=== PATIENT | female | born 1945 | race American Indian/Alaskan Native ===

== ENCOUNTER 2018-07-07 18:31 | Observation (INO) | payer MEDICARE ==
[2018-07-07 18:57] VITALS: BMI 36.6
[2018-07-07 20:17] LABS: BASO # 0.02 K/mm3 (0.0-2.0); BASO % 0.2 % (0.0-3.0); EOS # 0.1 (0.0-0.7); EOS % 1.2 % (1.5-5.0); HEMOGLOBIN 14.3 g/dL (12.0-16.0); LYMPH # 4.2 (1.2-3.4); LYMPH % 51.3 % (22.0-35.0); MEAN CELL VOLUME 91.9 fl (80.0-105.0); MEAN CORPUSCULAR HEMOGLOBIN 29.8 pg (25.0-35.0); MEAN CORPUSCULAR HGB CONC 32.4 g/dl (31.0-37.0); MEAN PLATELET VOLUME 10.7 fl (7.0-11.0); MONO # 0.5 (0.1-0.6); MONO % 5.7 % (1.0-6.0); RBC 4.8 10^6/uL (3.5-6.1); RED CELL DISTRIBUTION WIDTH 13.5 % (11.5-14.5); WHITE BLOOD COUNT 8.3 10^3/uL (4.5-11.0)
[2018-07-07 20:19] LABS: URINE APPEARANCE CLEAR (CLEAR); URINE BILIRUBIN NEGATIVE (NEGATIVE); URINE BLOOD NEGATIVE (NEGATIVE); URINE COLOR LIGHT YELLOW (YELLOW); URINE GLUCOSE (UA) NEGATIVE (NEGATIVE); URINE LEUKOCYTE ESTERASE NEGATIVE Leu/uL (NEGATIVE); URINE PROTEIN NEGATIVE mg/dL (<30 mg/dL); URINE UROBILINOGEN 0.2 E.U./dL (<1 E.U./dL)
[2018-07-07 20:21] LABS: INR 1.08; PARTIAL THROMBOPLASTIN TIME 23.4 Seconds (26.9-38.3)
[2018-07-07 21:15] LABS: ALB/GLOB RATIO 1.2 (1.1-1.8); ALBUMIN 4.2 g/dL (3.0-4.8); ALT/SGPT 9 U/L (7-56); AST/SGOT 14 U/L (14-36); BLOOD UREA NITROGEN 15 mg/dL (7-21); CALCIUM 9.5 mg/dL (8.4-10.5); GFR NON-AFRICAN AMERICAN > 60; LIPASE 53 U/L (23-300)
[2018-07-07 21:27] LABS: TROPONIN I < 0.01 ng/mL
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
[2018-07-08 03:40] LABS: BASO # 0.02 K/mm3 (0.0-2.0); BASO % 0.3 % (0.0-3.0); EOS # 0.1 (0.0-0.7); EOS % 1.4 % (1.5-5.0); HEMOGLOBIN 12.9 g/dL (12.0-16.0); LYMPH # 3.5 (1.2-3.4); LYMPH % 49.4 % (22.0-35.0); MEAN CELL VOLUME 90.9 fl (80.0-105.0); MEAN CORPUSCULAR HEMOGLOBIN 29.5 pg (25.0-35.0); MEAN CORPUSCULAR HGB CONC 32.4 g/dl (31.0-37.0); MEAN PLATELET VOLUME 10.1 fl (7.0-11.0); MONO # 0.4 (0.1-0.6); MONO % 5.5 % (1.0-6.0); RBC 4.38 10^6/uL (3.5-6.1); RED CELL DISTRIBUTION WIDTH 13.3 % (11.5-14.5); WHITE BLOOD COUNT 7.1 10^3/uL (4.5-11.0)
[2018-07-08 04:58] LABS: LDL CHOLESTEROL 77 mg/dL (0-129); TROPONIN I < 0.01 ng/mL
[2018-07-08 05:07] LABS: ALB/GLOB RATIO 1.1 (1.1-1.8); ALBUMIN 3.9 g/dL (3.0-4.8); ALT/SGPT 11 U/L (7-56); AST/SGOT 17 U/L (14-36); BLOOD UREA NITROGEN 12 mg/dL (7-21); CALCIUM 9.6 mg/dL (8.4-10.5); GFR NON-AFRICAN AMERICAN > 60; HDL CHOLESTEROL 41 mg/dL (29-60)
[2018-07-08 06:18] VITALS: TEMP 98.5; O2SAT 97
[2018-07-08] MEDS: Insulin Regular 1 UNITS/0.01 ML ML SC SCH ×3 (08:08→17:27)
--- NOTE | 2018-07-08 08:13 | RAD ---
Date of service: 07/07/2018 HISTORY: chest pain COMPARISON: No prior. FINDINGS: LUNGS: No active pulmonary disease. PLEURA: No significant pleural effusion identified, no pneumothorax apparent. CARDIOVASCULAR: No aortic atherosclerotic calcification present. Mild cardiomegaly no pulmonary vascular congestion. OSSEOUS STRUCTURES: Sternal wires VISUALIZED UPPER ABDOMEN: Normal. OTHER FINDINGS: None. IMPRESSION: No active disease.
[2018-07-08] MEDS ORDERED: Aminophylline 25 mg/ml Inj ONE (10:44)
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
--- NOTE | 2018-07-08 16:29 | CARD ---
APPROVED REPORT Date of service: 07/08/2018 EXAM: Two-dimensional and M-mode echocardiogram with Doppler and color Doppler. INDICATION Chest Pain 2D DIMENSIONS Left Atrium (2D)3.9 (1.6-4.0cm)IVSd1.2 (0.7-1.1cm) LVDd3.3 (3.9-5.9cm)PWd1.4 (0.7-1.1cm) LVDs2.3 (2.5-4.0cm)FS (%) 30.6 % LVEF (%)59.4 (>50%) M-Mode DIMENSIONS Aortic Root2.60 (2.2-3.7cm)Aortic Cusp Exc.1.70 (1.5-2.0cm) Aortic Valve AoV Peak Hpbrhfnt181.0cm/Flaco Peak GR.8mmHg Mitral Valve MV E Aiufcdka18.8cm/sMV A Egpbgekw614.0cm/sE/A ratio0.5 TDI E/Lateral E'0.0E/Medial E'0.0 Tricuspid Valve TR Peak Qtpkyiqq130vm/sRAP BUSIDUYC46vfKfHU Peak Gr.16mmHg [id number] LEFT VENTRICLE The left ventricle is normal size. There is normal left ventricular wall thickness. The left ventricular function is normal. The left ventricular ejection fraction is within the normal range. There is normal LV segmental wall motion. Transmitral Doppler flow pattern is Grade I-abnormal relaxation pattern. RIGHT VENTRICLE The right ventricle is normal size. There is normal right ventricular wall thickness. The right ventricular systolic function is normal. ATRIA The left atrium size is normal. The right atrium size is normal. AORTIC VALVE The aortic valve is mildly thickened. No aortic regurgitation is present. There is no aortic valvular stenosis. MITRAL VALVE The mitral valve is mildly thickened. There is no mitral valve regurgitation noted. There is no mitral valve stenosis. TRICUSPID VALVE The tricuspid valve is normal in structure. There is trace tricuspid regurgitation. PULMONIC VALVE The pulmonary valve is normal in structure. There is trace pulmonic valvular regurgitation. GREAT VESSELS The aortic root is normal in size. The IVC is normal in size and collapses >50% with inspiration. PERICARDIAL EFFUSION There is no pericardial effusion. <Conclusion> There is normal left ventricular wall thickness. The left ventricular function is normal. The left ventricular ejection fraction is within the normal range. There is normal LV segmental wall motion. Transmitral Doppler flow pattern is Grade I-abnormal relaxation pattern.
--- NOTE | 2018-07-08 17:04 | CP.PCM.DIS ---
<Ricardo Rush - Last Filed: 07/08/18 17:04> Provider - Provider Date of Admission: 07/07/18 22:52 Attending physician: Ethan Hawthorne MD Consults: 07/08/18 00:59 Physician Consult Routine Comment: Consulting Provider: Lakia Holman Consulting Physician: Lakia Holman Reason for Consult: acs r/o 07/08/18 03:14 Social Work Referral Routine Comment: admission assessment protocol Physician Instructions: Reason For Exam: Madhuri score of 8 Time Spent in preparation of Discharge (in minutes): 40 Diagnosis - Discharge Diagnosis (1) Chest pain Status: Resolved (2) CAD (coronary artery disease) Status: Chronic Hospital Course - Lab Results Lab Results: Most Recent Lab Values WBC 7.1 10^3/uL (4.5-11.0) 07/08/18 03:20 RBC 4.38 10^6/uL (3.5-6.1) 07/08/18 03:20 Hgb 12.9 g/dL (12.0-16.0) 07/08/18 03:20 Hct 39.8 % (36.0-48.0) 07/08/18 03:20 MCV 90.9 fl (80.0-105.0) 07/08/18 03:20 MCH 29.5 pg (25.0-35.0) 07/08/18 03:20 MCHC 32.4 g/dl (31.0-37.0) 07/08/18 03:20 RDW 13.3 % (11.5-14.5) 07/08/18 03:20 Plt Count 316 10^3/uL (120.0-450.0) 07/08/18 03:20 MPV 10.1 fl (7.0-11.0) 07/08/18 03:20 Neut % (Auto) 43.4 % (50.0-68.0) L 07/08/18 03:20 Lymph % (Auto) 49.4 % (22.0-35.0) H 07/08/18 03:20 Lee % (Auto) 5.5 % (1.0-6.0) 07/08/18 03:20 Eos % (Auto) 1.4 % (1.5-5.0) L 07/08/18 03:20 Baso % (Auto) 0.3 % (0.0-3.0) 07/08/18 03:20 Lymph # (Auto) 3.5 (1.2-3.4) H 07/08/18 03:20 Lee # (Auto) 0.4 (0.1-0.6) 07/08/18 03:20 Eos # (Auto) 0.1 (0.0-0.7) 07/08/18 03:20 Baso # (Auto) 0.02 K/mm3 (0.0-2.0) 07/08/18 03:20 Absolute Neuts (auto) 3.06 (1.4-6.5) 07/08/18 03:20 PT 12.0 SECONDS (9.4-12.5) 07/07/18 19:30 INR 1.08 07/07/18 19:30 APTT 23.4 Seconds (26.9-38.3) L 07/07/18 19:30 Sodium 140 mmol/L (132-148) 07/08/18 03:20 Potassium 4.2 mmol/L (3.6-5.0) 07/08/18 03:20 Chloride 104 mmol/L (98-107) 07/08/18 03:20 Carbon Dioxide 30 mmol/L (21-33) 07/08/18 03:20 Anion Gap 9 (10-20) L 07/08/18 03:20 BUN 12 mg/dL (7-21) 07/08/18 03:20 Creatinine 0.8 mg/dl (0.7-1.2) 07/08/18 03:20 Est GFR ( Amer) > 60 07/08/18 03:20 Est GFR (Non-Af Amer) > 60 07/08/18 03:20 POC Glucose (mg/dL) 141 mg/dL (65-110) H 07/08/18 16:14 Random Glucose 137 mg/dL (70-110) H 07/08/18 03:20 Hemoglobin A1c 7.7 % (4.2-6.5) H 07/08/18 03:20 Calcium 9.6 mg/dL (8.4-10.5) 07/08/18 03:20 Magnesium 1.9 mg/dL (1.7-2.2) 07/07/18 20:57 Total Bilirubin 0.5 mg/dL (0.2-1.3) 07/08/18 03:20 AST 17 U/L (14-36) 07/08/18 03:20 ALT 11 U/L (7-56) 07/08/18 03:20 Alkaline Phosphatase 63 U/L (38-126) 07/08/18 03:20 Lactate Dehydrogenase 349 U/L (333-699) 07/07/18 20:57 Total Creatine Kinase 56 U/L (35-230) 07/07/18 20:57 Troponin I < 0.01 ng/mL 07/08/18 09:20 Total Protein 7.4 g/dL (5.8-8.3) 07/08/18 03:20 Albumin 3.9 g/dL (3.0-4.8) 07/08/18 03:20 Globulin 3.5 gm/dL 07/08/18 03:20 Albumin/Globulin Ratio 1.1 (1.1-1.8) 07/08/18 03:20 Triglycerides 146 mg/dL (35-160) 07/08/18 03:20 Cholesterol 156 mg/dL (130-200) 07/08/18 03:20 LDL Cholesterol Direct 77 mg/dL (0-129) 07/08/18 03:20 HDL Cholesterol 41 mg/dL (29-60) 07/08/18 03:20 Lipase 53 U/L (23-300) 07/07/18 20:57 TSH 3rd Generation 1.49 mIU/mL (0.46-4.68) 07/08/18 03:20 Urine Color Light yellow (YELLOW) 07/07/18 19:30 Urine Appearance Clear (CLEAR) 07/07/18 19:30 Urine pH 7.0 (4.7-8.0) 07/07/18 19:30 Ur Specific [place] 1.010 (1.005-1.035) 07/07/18 19:30 Urine Protein Negative mg/dL (<30 mg/dL) 07/07/18 19:30 Urine Glucose (UA) Negative mg/dL (NEGATIVE) 07/07/18 19:30 Urine Ketones Negative mg/dL (NEGATIVE) 07/07/18 19:30 Urine Blood Negative (NEGATIVE) 07/07/18 19:30 Urine Nitrate Negative (NEGATIVE) 07/07/18 19:30 Urine Bilirubin Negative (NEGATIVE) 07/07/18 19:30 Urine Urobilinogen 0.2 E.U./dL (<1 E.U./dL) 07/07/18 19:30 Ur Leukocyte Esterase Negative [place]/uL (NEGATIVE) 07/07/18 19:30 - Hospital Course Hospital Course: Ricardo Rush DO, PGY-1 Hospitalist Discharge Summary for Dr. Hawthorne Prior to admission: Patient is a 73 yo F with PMH of HTN, DM2, HLD, and CAD (s/p CABG in 2013) presented to [facility] [place] ED with a complaint of CP x 2 days. Patient also admitted to associated diaphoresis, nausea, vomiting (x1 episode nonbloody), and lightheadedness. She was subsequently admitted for ACS r/o. Hospitalization course: Patient's troponins were trended q6h and were negative x 3. Repeat EKG in AM showed no changes from prior. Dr. Wall saw and evaluated patient and recommended inpatient stress test. Patient was subsequently instructed to f/u with Dr. Wall within 1 week to discuss results. Patient was given additional instructions as below. Discharge plan was discussed in detail with patient. All questions were answered. Patient seen, examined, and discharge plan discussed with my attending Dr. Marine Rush D.O. IM Resident PGY-1 Discharge Exam - Head Exam Head Exam: NORMAL INSPECTION, NORMOCEPHALIC - Eye Exam Eye Exam: EOMI, PERRL - ENT Exam ENT Exam: Mucous Membranes Moist - Neck Exam Neck exam: Full Rom, Normal Inspection - Respiratory Exam Respiratory Exam: Clear to PA & Lateral, NORMAL BREATHING PATTERN, UNREMARKABLE. absent: Accessory Muscle Use, Rales, Rhonchi, Wheezes, Respiratory Distress - Cardiovascular Exam Cardiovascular Exam: REGULAR RHYTHM, RRR, +S1, +S2. absent: Diastolic murmur, Gallop, Rubs, Systolic Murmur - GI/Abdominal Exam GI & Abdominal Exam: Normal Bowel Sounds, Soft, Unremarkable. absent: Tenderness - Extremities Exam Extremities exam: full ROM, normal inspection - Back Exam Back exam: NORMAL INSPECTION - Neurological Exam Neurological exam: Alert, Oriented x3 - Psychiatric Exam Psychiatric exam: Normal Affect, Normal Mood - Skin Skin Exam: Dry, Intact, Warm Discharge Plan - Follow Up Plan Condition: FAIR Disposition: HOME/ ROUTINE Instructions: Cardiac Stress Test, Myocardial Perfusion Imaging, Chemical Stress Test , Chest Pain (ED), Chest Pain (DC), Chest Pain (GEN) Additional Instructions: Please follow up with Dr Wall in 1 week for stress test result. Please follow up with your primary care doctor in 3-5 days. Continue with your home medications. Please return if the symptoms returns. Referrals: Lakia Wall MD [Staff Provider] - Fanta Anderson MD [Staff Provider] - <Ethan Hawthorne - Last Filed: 07/09/18 14:06> Provider - Provider Date of Admission: 07/07/18 22:52 Attending physician: Ethan Hawthorne MD Consults: 07/08/18 00:59 Physician Consult Routine Comment: Consulting Provider: Lakia Holman Consulting Physician: Lakia Holman Reason for Consult: acs r/o 07/08/18 03:14 Social Work Referral Routine Comment: admission assessment protocol Physician Instructions: Reason For Exam: Madhuri score of 8 Hospital Course - Lab Results Lab Results: Most Recent Lab Values WBC 7.1 10^3/uL (4.5-11.0) 07/08/18 03:20 RBC 4.38 10^6/uL (3.5-6.1) 07/08/18 03:20 Hgb 12.9 g/dL (12.0-16.0) 07/08/18 03:20 Hct 39.8 % (36.0-48.0) 07/08/18 03:20 MCV 90.9 fl (80.0-105.0) 07/08/18 03:20 MCH 29.5 pg (25.0-35.0) 07/08/18 03:20 MCHC 32.4 g/dl (31.0-37.0) 07/08/18 03:20 RDW 13.3 % (11.5-14.5) 07/08/18 03:20 Plt Count 316 10^3/uL (120.0-450.0) 07/08/18 03:20 MPV 10.1 fl (7.0-11.0) 07/08/18 03:20 Neut % (Auto) 43.4 % (50.0-68.0) L 07/08/18 03:20 Lymph % (Auto) 49.4 % (22.0-35.0) H 07/08/18 03:20 Lee % (Auto) 5.5 % (1.0-6.0) 07/08/18 03:20 Eos % (Auto) 1.4 % (1.5-5.0) L 07/08/18 03:20 Baso % (Auto) 0.3 % (0.0-3.0) 07/08/18 03:20 Lymph # (Auto) 3.5 (1.2-3.4) H 07/08/18 03:20 Lee # (Auto) 0.4 (0.1-0.6) 07/08/18 03:20 Eos # (Auto) 0.1 (0.0-0.7) 07/08/18 03:20 Baso # (Auto) 0.02 K/mm3 (0.0-2.0) 07/08/18 03:20 Absolute Neuts (auto) 3.06 (1.4-6.5) 07/08/18 03:20 PT 12.0 SECONDS (9.4-12.5) 07/07/18 19:30 INR 1.08 07/07/18 19:30 APTT 23.4 Seconds (26.9-38.3) L 07/07/18 19:30 Sodium 140 mmol/L (132-148) 07/08/18 03:20 Potassium 4.2 mmol/L (3.6-5.0) 07/08/18 03:20 Chloride 104 mmol/L (98-107) 07/08/18 03:20 Carbon Dioxide 30 mmol/L (21-33) 07/08/18 03:20 Anion Gap 9 (10-20) L 07/08/18 03:20 BUN 12 mg/dL (7-21) 07/08/18 03:20 Creatinine 0.8 mg/dl (0.7-1.2) 07/08/18 03:20 Est GFR ( Amer) > 60 07/08/18 03:20 Est GFR (Non-Af Amer) > 60 07/08/18 03:20 POC Glucose (mg/dL) 141 mg/dL (65-110) H 07/08/18 16:14 Random Glucose 137 mg/dL (70-110) H 07/08/18 03:20 Hemoglobin A1c 7.7 % (4.2-6.5) H 07/08/18 03:20 Calcium 9.6 mg/dL (8.4-10.5) 07/08/18 03:20 Magnesium 1.9 mg/dL (1.7-2.2) 07/07/18 20:57 Total Bilirubin 0.5 mg/dL (0.2-1.3) 07/08/18 03:20 AST 17 U/L (14-36) 07/08/18 03:20 ALT 11 U/L (7-56) 07/08/18 03:20 Alkaline Phosphatase 63 U/L (38-126) 07/08/18 03:20 Lactate Dehydrogenase 349 U/L (333-699) 07/07/18 20:57 Total Creatine Kinase 56 U/L (35-230) 07/07/18 20:57 Troponin I < 0.01 ng/mL 07/08/18 09:20 Total Protein 7.4 g/dL (5.8-8.3) 07/08/18 03:20 Albumin 3.9 g/dL (3.0-4.8) 07/08/18 03:20 Globulin 3.5 gm/dL 07/08/18 03:20 Albumin/Globulin Ratio 1.1 (1.1-1.8) 07/08/18 03:20 Triglycerides 146 mg/dL (35-160) 07/08/18 03:20 Cholesterol 156 mg/dL (130-200) 07/08/18 03:20 LDL Cholesterol Direct 77 mg/dL (0-129) 07/08/18 03:20 HDL Cholesterol 41 mg/dL (29-60) 07/08/18 03:20 Lipase 53 U/L (23-300) 07/07/18 20:57 TSH 3rd Generation 1.49 mIU/mL (0.46-4.68) 07/08/18 03:20 Urine Color Light yellow (YELLOW) 07/07/18 19:30 Urine Appearance Clear (CLEAR) 07/07/18 19:30 Urine pH 7.0 (4.7-8.0) 07/07/18 19:30 Ur Specific [place] 1.010 (1.005-1.035) 07/07/18 19:30 Urine Protein Negative mg/dL (<30 mg/dL) 07/07/18 19:30 Urine Glucose (UA) Negative mg/dL (NEGATIVE) 07/07/18 19:30 Urine Ketones Negative mg/dL (NEGATIVE) 07/07/18 19:30 Urine Blood Negative (NEGATIVE) 07/07/18 19:30 Urine Nitrate Negative (NEGATIVE) 07/07/18 19:30 Urine Bilirubin Negative (NEGATIVE) 07/07/18 19:30 Urine Urobilinogen 0.2 E.U./dL (<1 E.U./dL) 07/07/18 19:30 Ur Leukocyte Esterase Negative Aubrey/uL (NEGATIVE) 07/07/18 19:30 Attending/Attestation - Attestation I have personally seen and examined this patient.: Yes I have fully participated in the care of the patient.: Yes I have reviewed all pertinent clinical information, including history, physical exam and plan: Yes Notes (Text): Attending note; Patient seen and examined with resident. Patient is alert and awake. Denies any chest pain, shortness of breath. Denies any abdominal pain, nausea, vomiting. Denies any weakness. Going for stress test today. Patient is a 73 year old female with PMH of HTN, DM2, HLD, and CAD (s/p CABG in 2013) presented to [facility] ED with a complaint of pain for 2 days. 1. Chest pain; rule out acute coronary syndrome. Patient with a previous history of CABG. EKG showed normal sinus rhythm with LVH. Cardiac Enzymes negative. Patient is going for Stress test today. 2. Hypertension; continue metoprolol and Cozaar. Possible discharge home after stress test. Follow Up with cardiology Dr. Wall. Addendum; Stress test is normal.
--- NOTE | 2018-07-08 17:22 | CARD ---
APPROVED REPORT Date of service: 07/07/2018 EKG Measurement Heart [id number] <Conclusion> Normal sinus rhythm Possible Left atrial enlargement Left ventricular hypertrophy with repolarization abnormality Abnormal ECG
[2018-07-08 17:28] VITALS: BP 131/71; PULSE 74
[2018-07-08 17:42] VITALS: RESP 18
--- NOTE | 2018-07-08 21:37 | CARD ---
APPROVED REPORT Date of service: 07/08/2018 Protocol: LEXISCAN Test Type: Lexiscan Sestamibi Stress Test Attending Physician: Dr. Lakia Holman Referring Physician: Dr. LUIS FELIPE COLES Test Indications: Chest Pain Height:5 ft 2 in Weight:200lbs Medications: ASPIRIN, LIPITOR, PLAVIX, PEPCID INSULIN, COZAR, LOPRESSOR Medical History: 73 YEAR OLD FEMALE WITH H/O PA, HTN, HIGH CHOLESTEROL, PVD AND DIABETES Target HR: 149 bpm Resting ECG: RSR. Resting Heart Rate: 87 bpm Resting Blood Pressure: 122/60mmHg Submaximum (85%): 127 bpm PROCEDURE Pharmacologic stress testing was performed using 0.4mg per 5ml of regadenoson given intravenously over 7-10 seconds. POST EXERCISE Reason for Termination: Protocol completed Target HR: No Max HR: 95 bpm 76% of Maximum Predicted HR: 149 bpm Exercise duration: 00:41 min:sec, 0 Stage Exercise capacity: 1.0METs Max Blood Pressure: 160/70mmHg Blood Pressure response to exercise: resting hypertension - appropriate response Heart Rate response to exercise: appropriate Chest Pain: No, none Angina index: 0 Arrhythmia: No, none ST Change: No, none Deviation: 0 mm TEST SUMMARY [id number]. INFUSIONDOSE 100:[id number]/.0. [id number]:[id number]/70.0. INTERPRETATION Stress EKG Conclusion: IV LEXISCAN NUCLEAR STRESS TEST DURING WHICH PATIENT FELT SLIGHT PRESSURE LIKE CHEST PAIN. NO ST-T CHANGES. NUCLEAR SCAN REPORT PENDING. Signed by Lakia Holman Electronically Approved: 07/08/2018 13:47:55 EXAM: Myocardial Perfusion STRESS/ Stress Test Type: Pharmacologic Imaging Protocol The imaging protocol used to acquire images was Stress Tc-99m/rest Tc-99m 1 day Rest Spect myocardial perfusion imaging was performed in supine position 45 minutes following the injection of 30.1 mCi of Tc-99 Myoview. At peak stress, the patient was injected intravenously with 10.6mCi of Tc-99 tetrofosmin after an infusion time of 0 minutes and 10 seconds. Gated Stress Spect was performed 70 minutes after intravenous Tc-99 Myoview injection. The images were gated to evaluate regional wall motion and calculate ventricular ejection fraction.Images were reconstructed using backfilter projection method in short horizontal and verticle long axis. Spect slices were generated. LV Perfusion The quality of the study is good. The left ventricle is normal in size with thickened myocardium. The right ventricle is unremarkable. The lung uptake is within normal limits. The distribution of tracer reveals normal uptake pattern throughout the LV myocardium on the stress study. The rest myocardial perfusion study shows no significant change. Wall Motion Wall motion study shows good contractility of the left ventricle. LVEF = 58%. Conclusion 1. Normal SPECT myocardial perfusion study. 2. Normal gated wall motion of the left ventricle.
== END 2018-07-08 19:42 | disposition home or self-care (01) ==
LOC: ED 18:31 → ERH 22:52 → 2RSO 07-08 01:59
PROVIDERS: ADMIT Internal Medicine; ATTEND Internal Medicine
DX: R07.89 Other chest pain (principal); I10 Essential (primary) hypertension; E11.51 Type 2 diabetes mellitus with diabetic peripheral angiopathy without gangrene; E78.5 Hyperlipidemia, unspecified; M51.26 Other intervertebral disc displacement, lumbar region; I25.10 Atherosclerotic heart disease of native coronary artery without angina pectoris; I25.2 Old myocardial infarction; Z95.1 Presence of aortocoronary bypass graft; Z79.02 Long term (current) use of antithrombotics/antiplatelets; Z79.84 Long term (current) use of oral hypoglycemic drugs; Z79.82 Long term (current) use of aspirin
CPT/HCPCS: 36415; 71045; 78452; 80053; 80061; 81003; 82550; 82948; 83036; 83615; 83690; 83735; 84443; 84484; 85025; 85610; 85730; 93005; 93017; 93306; 99285; A9502; G0378; J2785